=== PATIENT | male | born 1995 | race African-American/Black ===

== ENCOUNTER 2019-07-22 09:01 | Emergency (ER) | payer MEDICAID ==
[~2019-07-22] VITALS: Ht 172.7 cm; Wt 72.6 kg
[2019-07-22 09:01] VITALS: BP 126/87
--- NOTE | 2019-07-22 09:02 | NUR ---
ED Nurse Note: Patient brought into ER by [employer] via ambulance from home. Patient not alert but not oriented to person, place, time, or purpose. Patient unable to provide accurate information regarding self. Patient ambulatory but does not know own limitations at this time. No cardiovascular or respiratory distress noted at this time.
--- NOTE | 2019-07-22 09:20 | NUR ---
ED Nurse Note: Attempted to collect urine sample, patient refused urinal and refused straight cath. Two cups of water provided.
--- NOTE | 2019-07-22 09:39 | NUR ---
attempted ekg, patient became verbally agressive. ERMD notified.
[2019-07-22 10:10] LABS: BASOPHILS % (AUTO) 0.9 % (0.0-2.0); EOSINOPHILS % (AUTO) 1.2 % (0.0-3.0); HEMATOCRIT 37.5 % (42.0-52.0); HEMOGLOBIN 12.6 G/DL (14.2-18.0); LYMPHOCYTES % (AUTO) 15.4 % (20.0-45.0); MEAN CORPUSCULAR VOLUME 92 FL (80-99); MONOCYTES % (AUTO) 6.5 % (1.0-10.0); PLATELET COUNT 279 K/UL (150-450); RED CELL DISTRIBUTION WIDTH 12.8 % (11.6-14.8); WHITE BLOOD COUNT 12.4 K/UL (4.8-10.8)
[2019-07-22 10:15] LABS: ANION GAP 3 mmol/L (5-15); BLOOD UREA NITROGEN 17 mg/dL (7-18); CALCIUM 8.9 MG/DL (8.5-10.1); CARBON DIOXIDE 31 MMOL/L (21-32); CHLORIDE 102 MMOL/L (98-107); CREATININE 0.9 MG/DL (0.55-1.30); POTASSIUM 4.2 MMOL/L (3.5-5.1); SODIUM 136 MMOL/L (136-145)
[2019-07-22 10:27] LABS: ALANINE AMINOTRANSFERASE 54 U/L (12-78); ALBUMIN 4.1 G/DL (3.4-5.0); ALBUMIN/GLOBULIN RATIO 0.8 (1.0-2.7); ALKALINE PHOSPHATASE 65 U/L (46-116); ASPARTATE AMINO TRANSFERASE 60 U/L (15-37); BILIRUBIN,TOTAL 0.8 MG/DL (0.2-1.0)
[2019-07-22 11:36] LABS: APPEARANCE,URINE CLEAR; BILIRUBIN, URINE 1+ (NEGATIVE); GLUCOSE, URINE (UA) NEGATIVE (NEGATIVE); KETONES,URINE 4+ (NEGATIVE); LEUKOCYTE ESTERASE ,URINE 1+ (NEGATIVE); NITRITE,URINE NEGATIVE (NEGATIVE); PH,URINE 5 (4.5-8.0); PROTEIN,URINE 2+ (NEGATIVE); UROBILINOGEN,URINE 4 MG/DL (0.0-1.0)
[2019-07-22 11:39] LABS: COLOR,URINE YELLOW
--- NOTE | 2019-07-22 13:10 | Emergency Room Report ---
History of Present Illness General Chief Complaint: Behavioral Complaint Source: Patient Present Illness HPI This patient is brought in by EMS. The patient was also accompanied by [place] to Police Department. They are concerned that the patient was acting bizarrely and intoxicated and was stating that he was going to jump into traffic. He is brought in for further evaluation. The patient himself is unable to give any type of articulate history. Patient has a history of drug abuse. Patient refuses to give any information about himself. Per report, the patient did use street drugs just prior to the incident. Allergies: Coded Allergies: UNABLE TO ASSESS (Unverified , 07/22/19) Patient History Past Medical History: unable to obtain Past Surgical History: unable to obtain Pertinent Family History: unable to obtain Social History: Reports: drug use; Denies: smoking, alcohol use Reviewed Nursing Documentation: PMH: Agreed; PSxH: Agreed Nursing Documentation-PMH Past Medical History: Deferred Review of Systems All Other Systems: negative except mentioned in HPI Physical Exam Vital Signs Date Time Temp Pulse Resp B/P (MAP) Pulse Ox O2 Delivery O2 Flow Rate FiO2 07/22/19 08:55 98.1 102 20 126/87 (100) 100 Room Air Sp02 EP Interpretation: reviewed, normal General Appearance: no apparent distress, alert, GCS 15, non-toxic Head: normocephalic, atraumatic Eyes: bilateral eye normal inspection, bilateral eye PERRL ENT: hearing grossly normal, normal pharynx, no angioedema, normal voice Neck: full range of motion, supple/symm/no masses Respiratory: chest non-tender, lungs clear, normal breath sounds, no respiratory distress, no retraction, no accessory muscle use, speaking full sentences Cardiovascular #1: regular rate, rhythm, no edema Gastrointestinal: normal bowel sounds, non tender, soft, non-distended, no guarding, no rebound Rectal: deferred Musculoskeletal: back normal, normal range of motion, non-tender Neurologic: alert, motor strength/tone normal, responsive, speech normal, grossly normal Psychiatric: other - intoxicated. Non-sensical, pyschosis, agitated Skin: normal color Medical Decision Making Diagnostic Impression: Primary Impression: Polydrug abuse ER Course This patient presents with polydrug intoxication. There was concern by [place] Police Department that he had said he was going to jump in traffic. However, the patient is intoxicated on amphetamines and other street drugs. He was allowed to detox here in the emergency department. Initially the patient was combative and resistant to staff. However, throughout the patient's ED course he became reasonable and was able to answer questions appropriately and articulately. He denied suicidal ideation. He did not recall stating to police that he was going to jump in traffic. I suspect the patient's behavior is related to his drug intoxication and drug abuse. I did educate the patient on the dangers of drug abuse. The patient was given a local resources for drug rehabilitation. The patient declined social work or other clinical social worker at this time. The patient is clinically sober at the time of discharge. The patient is given return precautions and follow-up instructions. Laboratory Tests Test 07/22/19 09:21 07/22/19 11:12 White Blood Count 12.4 K/UL (4.8-10.8) H Red Blood Count 4.10 M/UL (4.70-6.10) L Hemoglobin 12.6 G/DL (14.2-18.0) L Hematocrit 37.5 % (42.0-52.0) L Mean Corpuscular Volume 92 FL (80-99) Mean Corpuscular Hemoglobin 30.7 PG (27.0-31.0) Mean Corpuscular Hemoglobin Concent 33.6 G/DL (32.0-36.0) Red Cell Distribution Width 12.8 % (11.6-14.8) Platelet Count 279 K/UL (150-450) Mean Platelet Volume 7.5 FL (6.5-10.1) Neutrophils (%) (Auto) 76.0 % (45.0-75.0) H Lymphocytes (%) (Auto) 15.4 % (20.0-45.0) L Monocytes (%) (Auto) 6.5 % (1.0-10.0) Eosinophils (%) (Auto) 1.2 % (0.0-3.0) Basophils (%) (Auto) 0.9 % (0.0-2.0) Sodium Level 136 MMOL/L (136-145) Potassium Level 4.2 MMOL/L (3.5-5.1) Chloride Level 102 MMOL/L (98-107) Carbon Dioxide Level 31 MMOL/L (21-32) Anion Gap 3 mmol/L (5-15) L Blood Urea Nitrogen 17 mg/dL (7-18) Creatinine 0.9 MG/DL (0.55-1.30) Estimate Glomerular Filtration Rate > 60 mL/min (>60) Glucose Level 89 MG/DL (74-106) Calcium Level 8.9 MG/DL (8.5-10.1) Total Bilirubin 0.8 MG/DL (0.2-1.0) Aspartate Amino Transferase (AST) 60 U/L (15-37) H Alanine Aminotransferase (ALT) 54 U/L (12-78) Alkaline Phosphatase 65 U/L (46-116) Total Protein 9.1 G/DL (6.4-8.2) H Albumin 4.1 G/DL (3.4-5.0) Globulin 5.0 g/dL Albumin/Globulin Ratio 0.8 (1.0-2.7) L Thyroid Stimulating Hormone (TSH) 0.632 uiU/mL (0.358-3.740) Salicylates Level 2.2 ug/mL (2.8-20) L Acetaminophen Level < 2 MCG/ML (10-30) L Serum Alcohol < 3 mg/dL Urine Color Yellow Urine Appearance Clear Urine pH 5 (4.5-8.0) Urine Specific [place] 1.025 (1.005-1.035) Urine Protein 2+ (NEGATIVE) H Urine Glucose (UA) Negative (NEGATIVE) Urine Ketones 4+ (NEGATIVE) H Urine Blood Negative (NEGATIVE) Urine Nitrite Negative (NEGATIVE) Urine Bilirubin 1+ (NEGATIVE) H Urine Ictotest Negative (NEGATIVE) Urine Urobilinogen 4 MG/DL (0.0-1.0) H Urine Leukocyte Esterase 1+ (NEGATIVE) H Urine RBC 0 /HPF (0 - 0) Urine WBC 2-4 /HPF (0 - 0) Urine Squamous Epithelial Cells Few /LPF (NONE/OCC) Urine Bacteria Few /HPF (NONE) Urine Mucus Few /LPF (NONE/OCC) H Urine Opiates Screen Negative (NEGATIVE) Urine Barbiturates Screen Negative (NEGATIVE) Phencyclidine (PCP) Screen Negative (NEGATIVE) Urine Amphetamines Screen Positive (NEGATIVE) H Urine Benzodiazepines Screen Positive (NEGATIVE) H Urine Cocaine Screen Negative (NEGATIVE) Urine Marijuana (THC) Screen Positive (NEGATIVE) H EKG Diagnostic Results Rate: normal Rhythm: NSR ST Segments: no acute changes Rhythm Strip Diag. Results EP Interpretation: yes Rate: 80's Rhythm: NSR, no PVC's, no ectopy Last Vital Signs Date Time Temp Pulse Resp B/P (MAP) Pulse Ox O2 Delivery O2 Flow Rate FiO2 07/22/19 09:01 103 21 Room Air 07/22/19 09:01 98.1 126/87 100 Status: improved Disposition: HOME, SELF-CARE Condition: Improved Referrals: NOT CHOSEN IPA/,REFERRING (PCP) Patient Instructions: Self-Destructive Behavior Shelly Busby DO Jul 22, 2019 13:10
--- NOTE | 2019-07-22 13:28 | NUR ---
ED Nurse Note: per ERMD, pt is ok to be discharged when pt wakes up and ambulates with steady gait.
--- NOTE | 2019-07-22 13:50 | NUR ---
ED Nurse Note: Patient awake and ambulatory. Patient is aao x 4. Patient is stating he is homeless.
--- NOTE | 2019-07-22 13:55 | NUR ---
ED Nurse Note: homeless log done.
[2019-07-22 14:00] VITALS: BP 128/72
--- NOTE | 2019-07-22 14:00 | NUR ---
ER DISCHARGE NOTE: Patient is cleared to be discharged per ERMD. Patient aao x 4 and ambulatory. Patient declined to state where he is going for discharge. Patient IV removed with no complications. Patient was given discharge instructions, verbalized understanding. Patient ID band removed. Patient stable upon discharge.
--- NOTE | 2019-07-23 19:24 | Cardiology Report ---
APPROVED REPORT EKG Measurement Heart [id number] Normal sinus rhythm with sinus arrhythmia Normal ECG
== END 2019-07-22 14:00 | disposition home or self-care (01) ==
LOC: EDBD 09:01 → EMR 09:25
DX: F15.10 Other stimulant abuse, uncomplicated (principal)
CPT/HCPCS: 36415; 80053; 80307; 81003; 82962; 84443; 85025; 93005; G0480; G0481; Z7502; 99283

== ENCOUNTER 2019-09-24 21:12 | Emergency (ER) | payer MEDICAID ==
[~2019-09-24] VITALS: Ht 172.7 cm; Wt 63.5 kg
[2019-09-24 21:20] VITALS: BP 121/82
--- NOTE | 2019-09-24 21:25 | NUR ---
ED Nurse Note: Patient brought in by ambulance RA 61 due to SI since 09/23. Pt denies self harm, denies plan. Patient presented calm cooperative, AAOx 4, VSS at this time.
--- NOTE | 2019-09-24 21:28 | NUR ---
ED Nurse Note: Patient was undressed, all belongings were placed in locker #1
[2019-09-24 22:12] LABS: BASOPHILS % (AUTO) 0.8 % (0.0-2.0); HEMATOCRIT 41.2 % (42.0-52.0); HEMOGLOBIN 14.1 G/DL (14.2-18.0); LYMPHOCYTES % (AUTO) 33.4 % (20.0-45.0); MEAN CORPUSCULAR VOLUME 91 FL (80-99); MONOCYTES % (AUTO) 6.5 % (1.0-10.0); NEUTROPHILS % (AUTO) 54.4 % (45.0-75.0); PLATELET COUNT 289 K/UL (150-450); RED BLOOD COUNT 4.54 M/UL (4.70-6.10); WHITE BLOOD COUNT 8.3 K/UL (4.8-10.8)
[2019-09-24 22:16] LABS: APPEARANCE,URINE CLEAR; BILIRUBIN, URINE 1+ (NEGATIVE); GLUCOSE, URINE (UA) NEGATIVE (NEGATIVE); KETONES,URINE 4+ (NEGATIVE); LEUKOCYTE ESTERASE ,URINE NEGATIVE (NEGATIVE); NITRITE,URINE NEGATIVE (NEGATIVE); PH,URINE 5 (4.5-8.0); PROTEIN,URINE 2+ (NEGATIVE); UROBILINOGEN,URINE 4 MG/DL (0.0-1.0)
[2019-09-24 22:19] LABS: COLOR,URINE YELLOW
[2019-09-24 22:20] LABS: ANION GAP 14 mmol/L (5-15); BLOOD UREA NITROGEN 18 mg/dL (7-18); CALCIUM 9.5 MG/DL (8.5-10.1); CARBON DIOXIDE 23 MMOL/L (21-32); CHLORIDE 102 MMOL/L (98-107); CREATININE 1.2 MG/DL (0.55-1.30); POTASSIUM 3.7 MMOL/L (3.5-5.1); SODIUM 139 MMOL/L (136-145)
--- NOTE | 2019-09-24 22:20 | NUR ---
ED Nurse Note: [place] and orange juice were provided.
[2019-09-24 22:25] LABS: ALANINE AMINOTRANSFERASE 24 U/L (12-78); ALBUMIN 4.5 G/DL (3.4-5.0); ALBUMIN/GLOBULIN RATIO 0.8 (1.0-2.7); ALKALINE PHOSPHATASE 65 U/L (46-116); ASPARTATE AMINO TRANSFERASE 33 U/L (15-37)
--- NOTE | 2019-09-24 22:49 | Emergency Room Report ---
History of Present Illness General Chief Complaint: Behavioral Complaint Source: Patient Present Illness HPI 24-year-old male presents ED for evaluation. Brought in by EMS. Per [employer] patient stated he wanted to hurt himself. Patient denies SI or HI to me. Admits to alcohol and drug use. Denies hearing voices. No other aggravating relieving factors. Denies any other associated symptoms Allergies: Coded Allergies: AMOXICILLIN (Verified Allergy, Unknown, 09/24/19) ARIPIPRAZOLE (Verified Allergy, Unknown, 09/24/19) FLUOXETINE (Verified Allergy, Unknown, 09/24/19) QUETIAPINE (Verified Allergy, Unknown, 09/24/19) Patient History Past Medical History: psych hx Past Surgical History: none Pertinent Family History: none Social History: Reports: alcohol use, drug use; Denies: smoking Immunizations: UTD Reviewed Nursing Documentation: PMH: Agreed; PSxH: Agreed Nursing Documentation-PMH History Of Psychiatric Problem: Yes Review of Systems All Other Systems: negative except mentioned in HPI Physical Exam Vital Signs Date Time Temp Pulse Resp B/P (MAP) Pulse Ox O2 Delivery O2 Flow Rate FiO2 09/24/19 21:14 98.4 100 18 121/82 (95) 98 Room Air Sp02 EP Interpretation: reviewed, normal General Appearance: no apparent distress, alert, GCS 15, non-toxic Head: normocephalic, atraumatic Eyes: bilateral eye normal inspection, bilateral eye PERRL ENT: hearing grossly normal, normal pharynx, no angioedema, normal voice Neck: full range of motion, supple/symm/no masses Respiratory: chest non-tender, lungs clear, normal breath sounds, speaking full sentences Cardiovascular #1: regular rate, rhythm, no edema Cardiovascular #2: 2+ carotid (R), 2+ carotid (L), 2+ radial (R), 2+ radial (L) , 2+ dorsalis pedis (R), 2+ dorsalis pedis (L) Gastrointestinal: normal bowel sounds, non tender, soft, non-distended, no guarding, no rebound Rectal: deferred Genitourinary: normal inspection, no CVA tenderness Musculoskeletal: back normal, normal range of motion, gait/station normal, non- tender Neurologic: alert, motor strength/tone normal, oriented x3, sensory intact, responsive, speech normal Psychiatric: judgement/insight normal, memory normal, no suicidal/homicidal ideation, anxious Reflexes: 3+ bicep (R), 3+ bicep (L), 3+ tricep (R), 3+ tricep (L), 3+ knee (R) , 3+ knee (L) Skin: no rash Lymphatic: no adenopathy Medical Decision Making Diagnostic Impression: Primary Impression: Behavioral disorder Additional Impression: Substance abuse ER Course Hospital Course 24-year-old male presents to ED for suicidal ideation. admits to ETOH and drugs Differential diagnoses include: Major depressive disorder, unspecified psychosis , EtOH abuse, drug abuse Clinical course Patient placed on stretcher. On one to one observation. After initial history and physical I ordered labs, U. tox Labs-electrolytes normal, aspirin/Tylenol levels normal, EtOH level normal, U. tox +THC and amphetamines Patient denies SI/HI here. He is on 5150 hold. Patient is medically cleared and pending psychiatric evaluation. i. I feel this is a highly complex case requiring extensive working including EKG/Rhythm strip, Xray/CT/US, Blood/urine lab work, repeat exams while in ED, and administration of strong opiates/narcotics for pain control, admission to hospital or close patient follow up. Labs Test 09/24/19 21:56 White Blood Count 8.3 K/UL (4.8-10.8) Red Blood Count 4.54 M/UL (4.70-6.10) Hemoglobin 14.1 G/DL (14.2-18.0) Hematocrit 41.2 % (42.0-52.0) Mean Corpuscular Volume 91 FL (80-99) Mean Corpuscular Hemoglobin 31.1 PG (27.0-31.0) Mean Corpuscular Hemoglobin Concent 34.3 G/DL (32.0-36.0) Red Cell Distribution Width 12.0 % (11.6-14.8) Platelet Count 289 K/UL (150-450) Mean Platelet Volume 6.9 FL (6.5-10.1) Neutrophils (%) (Auto) 54.4 % (45.0-75.0) Lymphocytes (%) (Auto) 33.4 % (20.0-45.0) Monocytes (%) (Auto) 6.5 % (1.0-10.0) Eosinophils (%) (Auto) 5.0 % (0.0-3.0) Basophils (%) (Auto) 0.8 % (0.0-2.0) Urine Color Yellow Urine Appearance Clear Urine pH 5 (4.5-8.0) Urine Specific [place] 1.025 (1.005-1.035) Urine Protein 2+ (NEGATIVE) Urine Glucose (UA) Negative (NEGATIVE) Urine Ketones 4+ (NEGATIVE) Urine Blood Negative (NEGATIVE) Urine Nitrite Negative (NEGATIVE) Urine Bilirubin 1+ (NEGATIVE) Urine Ictotest Negative (NEGATIVE) Urine Urobilinogen 4 MG/DL (0.0-1.0) Urine Leukocyte Esterase Negative (NEGATIVE) Urine RBC 0-2 /HPF (0 - 0) Urine WBC 0-2 /HPF (0 - 0) Urine Squamous Epithelial Cells Occasional /LPF Urine Bacteria Few /HPF (NONE) Urine Mucus Many /LPF (NONE/OCC) Sodium Level 139 MMOL/L (136-145) Potassium Level 3.7 MMOL/L (3.5-5.1) Chloride Level 102 MMOL/L (98-107) Carbon Dioxide Level 23 MMOL/L (21-32) Anion Gap 14 mmol/L (5-15) Blood Urea Nitrogen 18 mg/dL (7-18) Creatinine 1.2 MG/DL (0.55-1.30) Estimat Glomerular Filtration Rate > 60 mL/min (>60) Glucose Level 72 MG/DL (74-106) Calcium Level 9.5 MG/DL (8.5-10.1) Total Bilirubin 1.0 MG/DL (0.2-1.0) Aspartate Amino Transf (AST/SGOT) 33 U/L (15-37) Alanine Aminotransferase (ALT/SGPT) 24 U/L (12-78) Alkaline Phosphatase 65 U/L (46-116) Total Protein 9.8 G/DL (6.4-8.2) Albumin 4.5 G/DL (3.4-5.0) Globulin 5.3 g/dL Albumin/Globulin Ratio 0.8 (1.0-2.7) Salicylates Level 2.0 ug/mL (2.8-20) Urine Opiates Screen Negative (NEGATIVE) Acetaminophen Level < 2 MCG/ML (10-30) Urine Barbiturates Screen Negative (NEGATIVE) Phencyclidine (PCP) Screen Negative (NEGATIVE) Urine Amphetamines Screen Positive (NEGATIVE) Urine Benzodiazepines Screen Negative (NEGATIVE) Urine Cocaine Screen Negative (NEGATIVE) Urine Marijuana (THC) Screen Positive (NEGATIVE) Serum Alcohol < 3 mg/dL Last Vital Signs Date Time Temp Pulse Resp B/P (MAP) Pulse Ox O2 Delivery O2 Flow Rate FiO2 09/24/19 21:20 98.4 18 121/82 98 Room Air 09/24/19 21:20 100 Status: improved Disposition: XFER TO PSYCH HOSP/UNIT Condition: Serious Referrals: NOT CHOSEN IPA/,REFERRING (PCP) Robert Alvarenga MD Sep 24, 2019 22:49
[2019-09-25 00:20] VITALS: BP 121/82
--- NOTE | 2019-09-25 01:00 | NUR ---
ED Nurse Note: pt appears to be asleep in bed with his eyes closed. does not appear to be in any distress at this time. breathing is even and non-labored, safety precautions in place. sitter at bedside. will continue to monitor pt
--- NOTE | 2019-09-25 04:00 | NUR ---
ED Nurse Note: pt appears to be asleep in bed with his eyes closed. does not appear to be in any distress at this time. breathing is even and non-labored, safety precautions in place. sitter at bedside
[2019-09-25 04:30] VITALS: BP 123/83
--- NOTE | 2019-09-25 05:19 | NUR ---
ED Nurse Note: breakfast tray ordered for pt. he appears to be asleep, breathing is even and non-labored. safety precautions are in place and sitter is at pt bedside
--- NOTE | 2019-09-25 06:55 | NUR ---
ED Nurse Note: pt is in bed eating breakfast. tolerating PO food and liquids well. no complaints at this time. safety precautions in place. will continue to monitor pt
--- NOTE | 2019-09-25 07:10 | NUR ---
HAND-OFF: Report given to DONNY Hanson.
--- NOTE | 2019-09-25 07:11 | NUR ---
ED Nurse Note: Received patient in bed, patient is alert awake, breakfast tray and water provided, patient tolerated. patient denies any SI/HI. IV removed by Cristy HINES.
--- NOTE | 2019-09-25 12:28 | NUR ---
ED Nurse Note: lunch tray provided to the patient. patient tolerating.
[2019-09-25] MEDS ORDERED: BIKTARVY 50-201 EACH PO (14:42)
--- NOTE | 2019-09-25 17:00 | NUR ---
ED Nurse Note: dinner tray provided for the patient.
--- NOTE | 2019-09-25 19:19 | NUR ---
HAND-OFF: Report given to TRINITY HINES.
--- NOTE | 2019-09-25 19:30 | NUR ---
ED Nurse Note: pt care endorsed by DONNY Hanson. pt has finished dinner, is lying in bed with eyes closed, breathing is even and non-labored, he does not appear to be in any distress at this time. safety precautions are in place, sitter at bedside. will continue to monitor pt
--- NOTE | 2019-09-25 19:30 | NUR ---
Brett ch in [facility] - 09/25/19 at 2002 by LUCÍA ED Note: pt received from Viry Hanson
[2019-09-25 20:24] VITALS: BP 106/71
--- NOTE | 2019-09-25 20:25 | NUR ---
ED Nurse Note: pt requesting anxiety meds, ERMD at pt bedside assessing
[2019-09-25] MEDS ORDERED: LORazepam 1mg tab ORAL ONE (21:00)
[2019-09-26] VITALS: BP_SYST 106; BP_SYST 110; BP_DIAS 71; BP_DIAS 75
--- NOTE | 2019-09-26 02:00 | NUR ---
ED Nurse Note: pt requesting food, keeps stating he is "very hungry" multiple juices, sandwich and crackers provided.
[2019-09-26 03:54] VITALS: BP 115/78
--- NOTE | 2019-09-26 04:00 | NUR ---
ED Nurse Note: pt requesting juice and water. both were provided. will continue to monitor pt
--- NOTE | 2019-09-26 05:00 | NUR ---
ED Nurse Note: breakfast tray has been ordered for pt. pt is in bed and appears to be sleeping, no acute distress is noted at this time. breathing is even and non-labored, VSS, safety precautions are in place, sitter is at bedside.
--- NOTE | 2019-09-26 05:16 | NUR ---
ED Nurse Note: pt requesting additional juices and provided with juice. safety precautions in place, will continue to monitor.
--- NOTE | 2019-09-26 05:45 | NUR ---
ED Nurse Note: pt able to ambulate to restroom with steady gait
--- NOTE | 2019-09-26 06:46 | NUR ---
ED Nurse Note: pt is in bed eating breakfast
--- NOTE | 2019-09-26 07:10 | NUR ---
HAND-OFF: Report given to DONNY Santana.
--- NOTE | 2019-09-26 07:16 | NUR ---
ED Nurse Note: Pt lying comfortably in bed with no signs of distress. Pt denies suicidal ideation at this time. Room is safe. Respirations even and unlabored on room air. Vitals stable as documented.
--- NOTE | 2019-09-26 07:38 | NUR ---
ED Nurse Note: David Chadwick @ bedside
[2019-09-26 07:51] VITALS: BP 118/84
--- NOTE | 2019-09-26 15:20 | NUR ---
ED Nurse Note: DR. SAMANIEGO LIFTED THE HOLD
--- NOTE | 2019-09-26 15:55 | NUR ---
ED Nurse Note: Dr. Bonilla assessed and cleared patient for discharge. Pt denies suicidal ideation.
[2019-09-26 16:00] VITALS: BP 115/85
--- NOTE | 2019-09-26 16:00 | NUR ---
Homeless Discharge: Patient is being discharged from medical care. Awake, alert and oriented x4. After care instructions, including referral to community resources were given. Patient verbalized understanding of After care instructions; at this time patient does not request medications, equipment or placement. Patient signed patient consent in the medical record for patient destination upon discharge. All medical devices such as IV and ID band were removed. Patient ambulated out with all personal belongings with steady gait.
--- NOTE | 2019-09-27 17:00 | Consultation ---
DATE OF CONSULTATION: 09/27/2019 CONSULTING PHYSICIAN: Cammie Bonilla M.D. HISTORY OF PRESENT ILLNESS: This is a 24-year-old male who has been admitted to the hospital on a 5150 for danger to self. The patient had a history of methamphetamine use. The patient during evaluation was asleep . The patient woke with his eyes closed. The patient denied any current suicidal ideation. He is denying any depressive or manic symptoms. Not observed responding to internal stimuli. In addition, the patient has been eating and behaving well. The patient requested to be discharged. PAST PSYCHIATRIC HISTORY: He stated that he has several psychiatric hospitalizations, but he was not able to provide any specific history. PAST MEDICAL HISTORY: Nonsignificant. ALLERGIES: No known drug allergies. SUBSTANCE ABUSE HISTORY: Significant for methamphetamine. MENTAL STATUS EXAMINATION: The patient is alert, oriented times self, place, situation, and date. Mood is neutral. Affect is constricted. Thought process is concrete. Thought content, no suicidal or homicidal ideation. Cognition is impaired. Insight and judgment is fair. ASSESSMENT: Howell I Methamphetamine use, rule out schizophrenia. Howell II Deferred. Howell III None. Howell IV Moderate. Howell V 50. PLAN: 1. We will discontinue 5150. 2. We will give the patient prescriptions as above. 3. The patient is not an imminent danger to self or others. Cammie Bonilla M.D. DR: DOMINGO JOB#: [id number] CC: RACIEL
== END 2019-09-26 16:00 | disposition home or self-care (01) ==
LOC: EDBD 21:12 → EMR 22:15
DX: F60.9 Personality disorder, unspecified (principal); F19.10 Other psychoactive substance abuse, uncomplicated; R45.851 Suicidal ideations; Z88.0 Allergy status to penicillin; Z88.8 Allergy status to other drugs, medicaments and biological substances
CPT/HCPCS: 36415; 80053; 80307; 81003; 85025; 96360; G0480; G0481; J7030; Z7502; 99285